=== PATIENT | male | born 1995 | race Caucasian/White ===

== ENCOUNTER 2024-09-05 10:27 | Outpatient (CLI) | payer OTHER, SELFPAY ==
[2024-09-05 11:04] LABS: Cholesterol 113 mg/dL (0-200); HDL Direct 57 mg/dL; LDL Cholesterol Calculated 49 mg/dL (<130); Magnesium 1.8 mg/dL (1.6-2.3); Triglycerides 34 mg/dL (<150)
[2024-09-05 11:21] LABS: Vitamin D 25 Hydroxy 53.3 ng/mL
== END 2024-09-05 10:28 | disposition home or self-care (01) ==
LOC: CHSLAB 10:29
PROVIDERS: PCP Registered Nurse; Visit Provider Registered Nurse
DX: E78.5 Hyperlipidemia, unspecified (principal); E55.9 Vitamin D deficiency, unspecified; E83.42 Hypomagnesemia; E53.8 Deficiency of other specified B group vitamins
CPT/HCPCS: 36415; 80061; 82306; 82607; 83735

== ENCOUNTER 2025-01-22 11:45 | Outpatient (CLI) | payer OTHER, SELFPAY ==
--- NOTE | ~2025-01-22 | PE_ITS ---
EXAMINATION: PET skull to mid thigh DATE: 01/22/2025 15:08 INDICATION: Pulmonary nodule. TECHNIQUE: Blood glucose level was 86 mg/dL. 10.936 mCi of 18-fluorodeoxyglucose (18-FDG) was administered i.v. Low dose computed tomography (CT) images were acquired from the base of the brain to the proximal thighs for attenuation correction and anatomic localization. Automated exposure control was employed. Dose-length product (DLP) was 976 mGy-cm. Positron emission tomography (PET) images were acquired in the same distribution. COMPARISON: Chest CT 11/24/2024, 11/13/23 FINDINGS: Head/neck: There are no pathologically enlarged lymph nodes. Chest: There are perilymphatic nodules in all lobes measuring up to 7 mm without increased activity. The recently described nodule in left lung lower lobe has decreased in size. No pleural effusion. The heart size is normal. No pericardial effusion. Abdomen/pelvis/proximal thighs: The liver, gallbladder, spleen, pancreas, adrenal glands, and kidneys are normal. There are no dilated loops of bowel. The appendix is normal. There are no pathologically enlarged lymph nodes. There is no free intraperitoneal fluid. There is no osseous malignancy. IMPRESSION: 1. Chronic pulmonary nodules in a perilymphatic distribution. The differential diagnosis includes granulomatous disease such as infection or sarcoid. Reviewed, dictated and finalized at location E.
== END 2025-01-22 11:46 | disposition home or self-care (01) ==
PROVIDERS: PCP Registered Nurse; Visit Provider Family Medicine
DX: R91.8 Other nonspecific abnormal finding of lung field (principal)
CPT/HCPCS: 78815; A9552

== ENCOUNTER 2025-03-04 12:49 | Outpatient (CLI) | payer OTHER, SELFPAY ==
--- NOTE | ~2025-03-04 | CT_ITS ---
PROCEDURE(S): CT diagnostic chest without contrast INDICATION(S): Follow-up pulmonary nodules COMPARISON(S): CT from November 24. PET/CT from January 22 TECHNIQUE: Multiplanar images were obtained without the use of IV contrast. FINDINGS: Minimal gynecomastia. Lungs: In the region of previously described spiculated mass, only some linear scarring is now seen. Again seen are multiple bilateral pulmonary nodules, the majority of which are calcified. No new abnormalities are seen. Pleural spaces: Normal. Heart/mediastinum: There is a small amount of residual thymic tissue, which is not unusual in this age group. Large airways: Clear/normal. Soft tissues: No significant abnormality is seen. Upper abdomen: No significant abnormality is seen. IMPRESSION: Resolution of previously seen spiculated mass. Only some linear scarring is now seen. Nearly all the pulmonary nodules seen are calcified, and there is been no significant interval change. This is consistent with prior granulomatous disease. Reviewed, dictated and finalized at location A. [employer] ARCHITECT IMPRESSION: Resolution of previously seen spiculated mass. Only some linear sca rring is now seen. Nearly all the pulmonary nodules seen are calcified, and the re is been no significant interval change. This is consistent with prior granul omatous disease.
--- OUTSIDE RECORDS SUMMARY | 2025-03-04 12:58 | XMS_ITS | Clinical Summary ---
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 90 tablet 1 0 Active Active Problems Problem Noted Date Diagnosed Date Other specified hypothyroidism 09/12/2018 Immunizations Immunization Administration Dates Next Due Dtap 07/16/2002,04/05/1998,1997 Dtap (Generic) 1997,1997 Hepatitis B 1997,1997 Hepatitis B Pediatric 1997 Hib 04/05/1998, 8,1997,04/11 MENINGOCOCCAL A C Y&W-135 oligosaccharide (MENVEO) 11/30/2014 MMR 07/16/2002,04/05/1998 Polio IPV (Ipol) 07/16/2002,1997, 8 Polio Ipv (Generic) 1997 Varicella Vaccine 04/05/1998 Family History Medical History Relation Comments No Known Problems Father No Known Problems Mother Relation Status Comments Father Alive Mother Alive Social History Tobacco Use Types Packs/Day Years Used Date Smoking Tobacco: Never Smokeless Tobacco: Never Alcohol Use Standard Drinks/Week Comments Yes 0 (1 standard drink = 0.6 oz pur e alcohol) socially PHQ-2 Answer Date Recorded PHQ-2 Score 2 08/11/2019 Sex and Gender Information Value Date Recorded Sex Assigned at Not on file 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 Gender Identity Not on file Sexual Orientation Not on file Last Filed Vital Signs Vital Sign Reading Time Taken Comments Blood Pressure 110/74 01/05/2020 10:41 AM CDT Pulse 67 01/05/2020 10:41 AM CDT Temperature 36.6 C (97.9 F) 01/05/2020 10:41 AM CDT Respiratory Rate 16 01/05/2020 10:4 1 AM CDT Oxygen Saturation 99% 01/05/2020 10: 41 AM CDT Inhaled Oxygen Concentration - - Weight 104.5 kg (230 lb 6.4 oz) 020 10:41 AM CDT Height 175.3 cm (5' 9) 01/05/2020 10:4 1 AM CDT Body Mass Index 34.02 01/05/2020 10:41 AM CDT Plan of Treatment Health Maintenance Due Date Last Done Comments Hepatitis B Vaccines (4 of 4 - 4-dose series) 1997 1997, 1997, 1997 DTaP, Tdap and Td Vaccines (6 - Tdap) 2008 07/16/2002, 04/05/1998, 1997, Additional history exists Annual Physical 09/13/2019 09/12/2018 COVID-19 Vaccine (2024- season) 2024 Influenza Adult (#1) 2025 HPV Vaccines (1 - 3-dose SCDM series) 11/29/2029 Postponed from 2024 (Patient Refused) Meningococcal Vaccine Completed 11/30/2014 Hepatitis C Completed 10/21/2018 Hepatitis A Vaccines Aged Out No long er eligible based on patient's age to complete this topic Meningococcal B Vaccine Aged Out No l onger eligible based on patient's age to complete this topic Pneumococcal Vaccine: Pediatrics (0 to 5 Years) and At-Risk Patients (6 to 49 Years) Aged Out No longer eligible based on patient's age to complete this topic RSV Immunizations Under 20 Months Aged Out No longer eligible based on patient's age to complete this topic Procedures Procedure Name Priority Date/Time Associated Diagnosis Comments HEPATITIS PANEL,ACUTE Routine 10/21/2018 11:13 AM CDT Liver enzyme elevation from Last 3 Months or Most Recently Relevant to Health Maintenance Results * HEPATITIS PANEL,ACUTE (10/21/2018 11:13 AM CDT) HEPATITIS B SURFACE AG NON-REACTI VE NON-REACTI VE 10/21/2018 8:04 PM CDT [facility] HEP B CORE IGM NON-REACTI VE NON-REACTI VE 10/21/2018 8:25 PM CDT [facility] HAV IGM NON-REACTI VE NON-REACTI VE 10/21/2018 8:47 PM CDT [facility] HEPATITIS C AB NON-REACTI VE NON-REACTI VE 10/21/2018 8:25 PM CDT [facility] 10/21/2018 11:1 3 AM CDT Kg Porter MD LABORATORY Final Resul t [facility] [address] [place] [address], from Last 3 Months or Most Recently Relevant to Health Maintenance Insurance Care Teams 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
== END 2025-03-04 12:50 | disposition home or self-care (01) ==
LOC: CHSIMG 12:51
PROVIDERS: PCP Registered Nurse; Visit Provider Registered Nurse
DX: R91.8 Other nonspecific abnormal finding of lung field (principal)
CPT/HCPCS: 71250